=== PATIENT | female | born 1995 | race Two or more races ===

== ENCOUNTER → 2018-03-16 | Outpatient (CLI) | payer OTHER ==
--- NOTE | 2018-03-16 10:36 | RADIOLOGY REPORT (SQ) ---
EXAM DESCRIPTION: C SP 4 OR 5 VIEWS COMPLETED DATE/TIME: 03/16/2018 10:25 am REASON FOR STUDY: CERVICALGIA M54.2 CERVICALGIA COMPARISON: None. NUMBER OF VIEWS: Five views. TECHNIQUE: AP, lateral, obliques and odontoid radiographic images acquired of the cervical spine. LIMITATIONS: None. FINDINGS: MINERALIZATION: Normal. ALIGNMENT: Straightening of cervical curvature, likely due to muscle spasm VERTEBRAE: Vertebral bodies of normal height. DISCS: No significant osteophytes or sclerosis. Disc height maintained. FORAMINA: No osteophytes or foraminal narrowing. LATERAL AND POSTERIOR ELEMENTS: Facets, lateral masses and spinous processes without significant find ings. HARDWARE: None in the spine. SOFT TISSUES: No masses or calcifications. Lung apices clear. OTHER: No other significant finding. IMPRESSION: NO SIGNIFICANT RADIOGRAPHIC FINDING IN THE CERVICAL SPINE. TECHNICAL DOCUMENTATION: JOB ID: [id number] [employer]- All Rights Reserved Reading location - IP/workstation name: [email or web address]
== END ==
LOC: OD 10:01
PROVIDERS: ATTEND Family Medicine
DX: M54.2 Cervicalgia (principal)
CPT/HCPCS: 72050

== ENCOUNTER 2018-06-18 19:49 | Emergency (ER) | payer BC, OTHER ==
[2018-06-18] MEDS ORDERED: KETOROLAC TROMETHAMINE 60 MG/2 ML SDV IM ONE (19:54)
[2018-06-18] MEDS ORDERED: PROCHLORPERAZINE EDISYLATE INJ 10 MG/2 ML VIAL IM ONE (19:54)
--- NOTE | 2018-06-18 19:54 | ER Document Report ---
ED Medical Screen (RME) - General Stated Complaint: LEFT SIDED HEADACHE Time Seen by Provider: 06/18/18 19:53 Primary Care Provider: SKY DAVISON MD [Primary Care Provider] - Follow up as needed Mode of Arrival: Ambulatory Information source: Patient Notes: Patient is an otherwise healthy 23-year-old female who presents emergency department chief complaint of headache of the left side of her head. She reports she woke up with it this morning. She states she took Tylenol at noon and again at 6 PM with minimal relief. Patient reports associated nausea without any vomiting. Patient denies any history of migraines. TRAVEL OUTSIDE OF THE [place] IN LAST 30 DAYS: No - Related Data Allergies/Adverse Reactions: Penicillins Allergy (Verified 09/05/17 13:24) Past Medical History - Social History Family history: None Renal/ Medical History: Denies: Hx Peritoneal Dialysis Doctor's Discharge - Discharge Referrals: SKY DAVISON MD [Primary Care Provider] - Follow up as needed
[2018-06-19] MEDS ORDERED: NORMAL SALINE 1000 ML 1,000 ML IV ONE (00:44)
--- NOTE | 2018-06-19 02:05 | ER Document Report ---
ED General - General Chief Complaint: Headache Stated Complaint: LEFT SIDED HEADACHE Time Seen by Provider: 06/18/18 19:53 Primary Care Provider: SKY DAVISON MD [Primary Care Provider] - 06/21/18 Mode of Arrival: Ambulatory Notes: Patient is a 23-year-old female who presents with complaint of headache. She woke up with a headache. The left side of her head. It went down into her face and a little bit into her neck. She says she always has neck pain related to a cervical disc herniation or the left side of her neck. She says the headache could be related to this. She says she is never had a headache like this however. She did receive medications in triage and says her symptoms are completely resolved and she feels well. She had some nausea but no vomiting. Some mild photophobia. She said as the day went on the headache gradually got worse. No fevers. No recent infections. No other complaints at this time. TRAVEL OUTSIDE OF THE [place] IN LAST 30 DAYS: No - Related Data Allergies/Adverse Reactions: Penicillins Allergy (Verified 09/05/17 13:24) Past Medical History - General Information source: Patient - Social History Smoking Status: Unknown if Ever Smoked Chew tobacco use (# tins/day): No Frequency of alcohol use: None Drug Abuse: None Family History: Reviewed & Not Pertinent Patient has suicidal ideation: No Patient has homicidal ideation: No Renal/ Medical History: Denies: Hx Peritoneal Dialysis Review of Systems - Review of Systems Notes: My Normal Review Basic REVIEW OF SYSTEMS: CONSTITUTIONAL : Denies fever, chills, or sweats. Denies recent illness. EENT: Denies eye, ear, throat, or mouth pain or symptoms. Denies nasal or sinus congestion. RESPIRATORY: Denies cough, cold, or chest congestion. Denies shortness of jesús ath, difficulty breathing, or wheezing. GASTROINTESTINAL: Denies abdominal pain. Denies nausea, vomiting, or diarrhea. MUSCULOSKELETAL: Denies neck or back pain or joint pain or swelling. SKIN: Denies rash or skin lesions. HEMATOLOGIC : Denies easy bruising or bleeding. NEUROLOGICAL: Denies altered mental status or loss of consciousness. Has a headache. Denies weakness or paralysis or loss of use of either side. Denies problems with gait or speech. Denies sensory or motor loss. ALL OTHER SYSTEMS REVIEWED AND NEGATIVE. Physical Exam - Vital signs Vitals: Temp Pulse Resp BP Pulse Ox 98.4 F 78 16 145/96 H 100 06/18/18 19:57 06/18/18 19:57 06/18/18 19:57 06/18/18 19:57 06/18/18 19:57 - Notes Notes: General Appearance: Well nourished, alert, cooperative, no acute distress, no obvious discomfort. Well-appearing. Vitals: reviewed, See vital signs table. Head: no swelling or tenderness to the head Eyes: PERRL, EOMI, Conjuctiva clear Mouth: No decreasd moisture Neck: Supple, no neck tenderness, Lungs: No wheezing, No rales, No rhonci, No accessory muscle use, good air exchange bilaterally. Heart: Normal rate, Regular rythm, No murmur, no rub Extremities: strength 5/5 in all extremities, good pulses in all extremities Neuro: speech clear, oriented x 3, normal affect, responds appropriately to questions. Cranial nerves II through XII are intact. Distal sensation intact. Patient moves all extremities without difficulty. Normal gait. Course - Re-evaluation Re-evalutation: 06/19/18 02:04 Patient's headache is not necessarily consistent with subarachnoid hemorrhage and that the headache gradually worsened throughout the day however she did wake up with headache and typically never gets headaches and therefore is very typical for her. Discussed with her the possibility of subarachnoid hemorrhage. I informed her that this is low possibility however being that she typically never gets headaches and I do not have a exact underlying cause of her headache that I recommend further workup. I talked about lumbar puncture versus CT of the head. I informed her that CT is not 100% but is still very looking for evidence of aneurysm. I explained the procedure lumbar puncture for her. She says she does not want a lumbar puncture. She says she would go forward with CTA. She is understanding that this is not 100% rule out subarachnoid hemorrhage. 06/19/18 02:39 Patient CTa of the head is negative. She continues to say that her headache is gone and she feels well. After the CTA they did hang IV fluids. Fortunately that her IV infiltrated and some the IV fluids went into the subcutaneous tissue of her forearm. I informed her to do cold compresses. Informed her that these fluid should absorb over the next several days. She is to return to ER if she has sudden onset headache, severe headache, vomiting, increasing tightness in her arm, numbness or tingling into the hand, or if she has further concerns. Patient agrees with plan and will be discharged home. Dictation of this chart was performed using voice recognition software; therefore, there may be some unintended grammatical errors. - Vital Signs Vital signs: Temp Pulse Resp BP Pulse Ox 97.9 F 72 16 132/89 H 100 06/19/18 02:54 06/19/18 02:54 06/19/18 02:54 06/19/18 02:54 06/19/18 02:54 Discharge - Discharge Clinical Impression: Headache Qualifiers: Headache type: unspecified Headache chronicity pattern: acute headache Intractability: not intractable Qualified Code(s): R51 - Headache IV infiltration Qualifiers: Encounter type: initial encounter Qualified Code(s): T80.1XXA - Vascular complications following infusion, transfusion and therapeutic injection, initial encounter Condition: Good Disposition: HOME, SELF-CARE Additional Instructions: The CT scan looking at your head was negative. It did not show any evidence of aneurysms or bleeding. Even though you have a normal CT scan it is very important that you return to the ER immediately if you have sudden onset severe headache, vomiting, weakness or numbness into your upper extremities, or if you feel unwell. Your IV did infiltrate and therefore some of the IV fluid you are receiving went into the subcutaneous tissues of your forearm. Typically the swelling will resolve and improve over the next 2-3 days. Cold compresses are helpful. On rare occasions you can get increasing swelling. If you develop increasing swelling or tightness in your arm, redness to your arm, or numbness into your hand you must return to ER immediately for reevaluation. Please follow up with Dr. Davison on Thursday or Thursday for reevaluation. Prescriptions: Promethazine HCl [Phenergan 25 mg Tablet] 25 mg PO Q6 PRN #15 tablet PRN Reason: vomiting or headache Forms: Return to Work Referrals: SKY DAVISON MD [Primary Care Provider] - 06/21/18
--- NOTE | 2018-06-19 02:17 | RADIOLOGY REPORT (SQ) ---
EXAM DESCRIPTION: CT HEAD ANGIOGRAPHY WITHOUT THEN WITH IV CONTRAST COMPLETED DATE/TME: 06/19/2018 00:44 CLINICAL HISTORY: 23 years, Female, headache COMPARISON: None. TECHNIQUE: 314 Images stored on PACS. All CT scanners at this facility use dose modulation, iterative reconstruction, and/or weight based dosing when appropriate to reduce radiation dose to as low as reasonably achievable (ALARA). Axial CTA images with coronal and sagittal MIPS reconstructions [facility]: Dose Right [facility]: CareDose [facility]: Dose Right [facility]: Teradose 4D [facility]: [employer] LIMITATIONS: None. FINDINGS: The vertebral basilar system is unremarkable. Negative for basilar tip aneurysm. The petrous and remaining intracranial portions of the internal carotid arteries are widely patent. The [place] is intact. No vascular encasement or displacement. No aneurysm or arteriovenous malformation. IMPRESSION: Negative exam TECHNICAL DOCUMENTATION: Quality ID # [id number]: Final reports with documentation of one or more dose reduction techniques (e.g., Automated exposure control, adjustment of the mA and/or kV according to patient size, use of iterative reconstruction technique) copyright 2011 [employer]- All Rights Reserved
[2018-06-19 02:55] VITALS: BP 132/89
== END 2018-06-19 02:55 | disposition home or self-care (01) ==
LOC: ER 19:49
DX: R51 Headache (principal); H53.149 Visual discomfort, unspecified; T80.1XXA Vascular complications following infusion, transfusion and therapeutic injection, initial encounter; X58.XXXA Exposure to other specified factors, initial encounter; Z88.0 Allergy status to penicillin
CPT/HCPCS: 99284; 96372; 96360; 70496; J1885; J0780; J7030

== ENCOUNTER 2018-09-26 06:07 | Emergency (ER) | payer BC ==
[2018-09-26] MEDS ORDERED: DOXYCYCLINE HYCLATE 100 MG TABLET PO ONE (07:22)
[2018-09-26] MEDS ORDERED: METRONIDAZOLE 500 MG TABLET PO ONE (07:22)
[2018-09-26] MEDS ORDERED: DIPH/PERTUSS(ACELL)/TETANUS VAC/PF 0.5 ML SYR (>=10YO) IM ONE (07:23)
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
--- NOTE | 2018-09-26 08:31 | RADIOLOGY REPORT (SQ) ---
EXAM DESCRIPTION: HAND LEFT 3 VIEWS COMPLETED DATE/TIME: 09/26/2018 7:42 am REASON FOR STUDY: dog bite, pain, swelling COMPARISON: None. EXAM PARAMETERS: NUMBER OF VIEWS: Three views. TECHNIQUE: AP, lateral and oblique radiographic images acquired of the left hand. LIMITATIONS: None. FINDINGS: MINERALIZATION: Normal. BONES: No acute fracture or dislocation. No worrisome bone lesions. JOINTS: No effusions. SOFT TISSUES: No soft tissue swelling. There is a small amount of gas in the soft tissues between th e 1st and 2nd metacarpal. No foreign body. OTHER: No other significant finding. IMPRESSION: SMALL AMOUNT OF GAS IN THE SOFT TISSUES BETWEEN THE 1ST AND 2ND METACARPAL SECONDARY TO PENETRATING INJURY. NO FRACTURE OR FOREIGN BODY. TECHNICAL DOCUMENTATION: JOB ID: [id number] [employer].- All Rights Reserved Reading location - IP/workstation name: [email or web address]
[2018-09-26 08:38] VITALS: BP 141/86
== END 2018-09-26 08:36 | disposition home or self-care (01) ==
LOC: ER 06:07
DX: S61.452A Open bite of left hand, initial encounter (principal); S81.852A Open bite, left lower leg, initial encounter; W54.0XXA Bitten by dog, initial encounter; Y93.89 Activity, other specified; Z88.0 Allergy status to penicillin; Z87.892 Personal history of anaphylaxis
CPT/HCPCS: 90471; 90715; 99283